=== PATIENT | female | born 1945 | race Caucasian/White ===

== ENCOUNTER 2021-08-15 12:17 | Inpatient (IN) | payer OTHER ==
[~2021-08-15] VITALS: Ht 172.7 cm; Wt 73.3 kg
--- NOTE | 2021-08-15 12:25 | NUR ---
TO ER BED 2, BIBRA 60 FROM BOARD AND CARE C/O SYNCOPAL EPISODE, R THIGH PAIN. AAOX3, BREATHING EVEN AND NON LABORED, AWAITING MD ORDERS
[2021-08-15] MEDS ORDERED: ATOR10TA PO (12:44)
[2021-08-15] MEDS ORDERED: ONDA4TAB5 PO (12:44)
[2021-08-15] MEDS ORDERED: DOCU-141 PO (12:44)
[2021-08-15] MEDS ORDERED: AMLO-212 PO (12:44)
[2021-08-15] MEDS ORDERED: FLUO40CA49 PO (12:44)
[2021-08-15] MEDS ORDERED: ACET-868 PO (12:44)
[2021-08-15] MEDS ORDERED: QUET25TA PO (12:44)
[2021-08-15] MEDS ORDERED: HYDR-4076 PO (12:44)
[2021-08-15] MEDS ORDERED: LISI10TA29 PO (12:44)
[2021-08-15] MEDS ORDERED: HALO0.5T PO (12:44)
[2021-08-15 12:52] LABS: BASOPHILS # (AUTO) 0.1 K/uL (0.0-0.2); BASOPHILS % (AUTO) 0.7 % (0.0-2.0); EOSINOPHILS % (AUTO) 2.1 % (0.0-6.0); HEMATOCRIT 34 % (33-45); HEMOGLOBIN 11.3 g/dL (11.5-14.8); LYMPHOCYTES # (AUTO) 0.9 K/uL (0.8-4.8); LYMPHOCYTES % (AUTO) 10.4 % (20.0-44.0); MEAN CORPUSCULAR HGB CONC 34 g/dl (31.0-36.0); MEAN CORPUSCULAR VOLUME 89 fL (82-100); MONOCYTES % (AUTO) 11.9 % (2.0-12.0); NEUTROPHILS # (AUTO) 6.1 K/uL (1.8-8.9); NEUTROPHILS % (AUTO) 74.9 % (43.0-81.0); PLATELET COUNT (AUTO) 234 K/uL (150-450); WHITE BLOOD COUNT (AUTO) 8.2 K/uL (4.3-11.0)
--- NOTE | 2021-08-15 13:03 | NUR ---
DR REILLY AT BEDSIDE
[2021-08-15 13:04] LABS: CALCIUM, SERUM 8.4 mg/dL (8.5-10.1); CARBON DIOXIDE 26 mmol/L (21-32); CHLORIDE 104 mmol/L (98-107); GLUCOSE 121 mg/dL (74-106); POTASSIUM 3.6 mmol/L (3.5-5.1); SODIUM SERUM 137 mmol/L (136-145); UREA NITROGEN, BLOOD 14 mg/dL (7-18)
[2021-08-15] MEDS ORDERED: IV LR 1000 ML 1,000 ML IV ONE (13:30)
--- NOTE | 2021-08-15 14:10 | NUR ---
COVID SWAB DONE AND SENT TO LAB
--- NOTE | 2021-08-15 15:17 | NUR ---
[facility] CALLED CHEMICAL ENGINEERING TECHNOLOGIST PAGED.
[2021-08-15] MEDS ORDERED: ACETAMINOPHEN 325 MG TABLET PO PRN (15:30)
[2021-08-15] MEDS ORDERED: HALOPERIDOL 0.5 MG PO PRN (15:30)
[2021-08-15] MEDS ORDERED: LABETALOL 20 MG/4 ML VIAL IV PRN (15:30)
[2021-08-15] MEDS ORDERED: IV NS 0.9% 1,000 ML IV SCH (15:30)
[2021-08-15] MEDS ORDERED: MORPHINE SULFATE INJ 2 MG/ML DISP.SYRIN IV PRN (15:30)
[2021-08-15] MEDS ORDERED: ONDANSETRON HCL/PF 4 MG/2 ML VIAL IVP PRN (15:30)
[2021-08-15] MEDS ORDERED: IV NS 0.9% 1,000 ML IV PRN (16:40)
[2021-08-15] MEDS ORDERED: ENOXAPARIN SODIUM 40 MG/0.4 ML DISP.SYRIN SQ ONE (16:45)
[2021-08-15] MEDS ORDERED: DOCUSATE SODIUM 100 MG CAPSULE PO ONE (16:45)
[2021-08-15] MEDS: ENOXAPARIN SODIUM 40 MG/0.4 ML DISP.SYRIN SQ SCH (16:50)
[2021-08-15] MEDS: DOCUSATE SODIUM 100 MG CAPSULE PO SCH (17:00)
--- NOTE | 2021-08-15 17:09 | NUR ---
REPORT GIVEN TO ABEL NATARAJAN FOR MARÍA
[2021-08-15] MEDS ORDERED: HALOPERIDOL 1 MG TABLET PO PRN (17:30)
--- NOTE | 2021-08-15 17:30 | NUR ---
TELE/PROPERTY LOSS INSURANCE CLAIM ADJUSTER NOTES RECEIVED PATIENT FROM THE ER VIA GURNEY. PATIENT IS ALERT AND ORIENTED X4, ABLE TO MAKE NEEDS KNOWN. STABLE ON ROOM AIR. AMBULATORY. SKIN INTACT WITH RED BUMP ON THE FOREHEAD AND BRUISE ON THE RIGHT LEG DUE TO FALL. NO DISCOMFORTS REPORTED AT THIS TIME. IV ACCESS ON LEFT HAND #20G IS INTACT AND PATENT WITH A RUNNING IV NS @75 ML/HR. TELEMONITOR ON WITH A SINUS 66. ORIENTED PATIENT IN THE UNIT. SAFETY MEASURES IN PLACED: BED LOCKED ON LOWEST POSITION, SIDE RAILS UPX2, CALL LIGHT WITHIN REACH. WILL CONTINUE TO MONITOR.
[2021-08-15] MEDS: IV NS 0.9% 1,000 ML IV SCH (18:36)
--- NOTE | 2021-08-15 19:45 | NUR ---
DIRECTOR OF RESERVATIONS OPENING NOTE PATIENT AWAKE IN BED, ALERT/ORIENTED X 2-3, PT ABLE TO MAKE NEEDS KNOWN. PT DENIES PAIN AT THIS TIME. PT STABLE ON RA, NO S/S OF DISTRESS OR SOB NOTED, BREATHING EVEN AND UNLABORED. PATIENT ON EXTERNAL PSYCHOLOGIST PERSONNEL READING SINUS RHYTHM, HR: 67. IV ACCESS ON LEFT HAND #20G INTACT AND INFUSING NS @ 75 ML/HR. PATIENT IS AMBULATORY TO BATHROOM. SAFETY MEASURES IN PLACE: CALL LIGHT WITHIN REACH, SIDE RAILS UP X 2, BED LOCKED IN LOWEST POSITION, TABLE WITHIN REACH. WILL CONTINUE TO MONITOR PATIENT
[2021-08-15 20:00] VITALS: BP 119/63
[2021-08-15] MEDS: ATORVASTATIN 10 MG TABLET PO SCH (21:11)
[2021-08-15] MEDS: QUETIAPINE FUMARATE 25 MG TABLET PO PRN (23:03)
[2021-08-16] VITALS (7 sets, daily range): BP systolic 106–146; BP diastolic 50–79
--- NOTE | 2021-08-16 06:55 | NUR ---
REAL ESTATE PHOTOGRAPHER CLOSING NOTE PATIENT AWAKE IN BED, ALERT/ORIENTED X 2-3, FORGETFUL AT TIMES, PT ABLE TO MAKE NEEDS KNOWN. PT DENIES PAIN AT THIS TIME. PT STABLE ON RA, NO S/S OF DISTRESS OR SOB NOTED, BREATHING EVEN AND UNLABORED. PATIENT ON EXTERNAL VENDOR QUALITY SUPERVISOR READING SINUS RHYTHM, HR: 65. IV ACCESS ON LEFT FOREARM #20G INTACT AND INFUSING NS @ 75 ML/HR. PATIENT IS AMBULATORY TO BATHROOM WITH SBA. MEDICATIONS GIVEN ORDERED, PT NEEDS MET THROUGHOUT SHIFT. SAFETY MEASURES IN PLACE: CALL LIGHT WITHIN REACH, SIDE RAILS UP X 2, BED LOCKED IN LOWEST POSITION, TABLE WITHIN REACH, BED ALARM ON. WILL ENDORSE TO DAY SHIFT NURSE FOR CONTINUITY OF CARE
[2021-08-16 07:07] LABS: BASOPHILS % (AUTO) 0.2 % (0.0-2.0); EOSINOPHILS % (AUTO) 1.4 % (0.0-6.0); HEMATOCRIT 34 % (33-45); HEMOGLOBIN 11.5 g/dL (11.5-14.8); LYMPHOCYTES # (AUTO) 0.8 K/uL (0.8-4.8); LYMPHOCYTES % (AUTO) 9.8 % (20.0-44.0); MEAN CORPUSCULAR HGB CONC 33 g/dl (31.0-36.0); MEAN CORPUSCULAR VOLUME 89 fL (82-100); MONOCYTES % (AUTO) 12.7 % (2.0-12.0); NEUTROPHILS # (AUTO) 5.9 K/uL (1.8-8.9); NEUTROPHILS % (AUTO) 75.9 % (43.0-81.0); PLATELET COUNT (AUTO) 231 K/uL (150-450); RED BLOOD CELL COUNT(AUTO) 3.87 MIL/uL (4.0-5.2); WHITE BLOOD COUNT (AUTO) 7.8 K/uL (4.3-11.0)
--- NOTE | 2021-08-16 07:45 | NUR ---
TAXICAB DRIVER OPENING NOTE Patient in bed, awake. A/O x 2-3, forgetful. On room air, breathing evenly and unlabored. No SOB or s/s of distress noted. IV access on LFA #20G infusing NS at 75 ml/hr. On tele monitoring showing SR, Hr on the 60's. Safety precautions in place: bed in low, locked position; siderails up x 2; call light within reach. Will continue to monitor.
[2021-08-16] MEDS: IV NS 0.9% 1,000 ML IV SCH ×2 (07:57→22:16)
[2021-08-16 08:33] LABS: ALBUMIN 2.8 g/dL (3.4-5.0); CALCIUM, SERUM 8.5 mg/dL (8.5-10.1); CREATININE 0.8 mg/dL (0.6-1.3); MAGNESIUM 2.1 mg/dL (1.8-2.4); PHOSPHORUS 3.4 mg/dL (2.5-4.9); TOTAL PROTEIN, SERUM 6.5 g/dL (6.4-8.2)
[2021-08-16] MEDS: LISINOPRIL (10MG) 10 MG TABLET PO SCH (08:54)
[2021-08-16] MEDS: DOCUSATE SODIUM 100 MG CAPSULE PO SCH ×2 (08:54→17:23)
[2021-08-16] MEDS: FLUOXETINE HCL 20 MG CAPSULE PO SCH (08:54)
[2021-08-16] MEDS ORDERED: Medication Not On Formulary EA (Fluoxetine Hcl 40 MG) PO SCH (09:00)
--- NOTE | 2021-08-16 10:09 | NUR ---
RN NOTE Patient's orthostatic BP as follows: supine 110/58; sitting 117/61; standing 106/58
--- NOTE | 2021-08-16 11:00 | NUR ---
RN NOTE Patient's IV access on LFA got infiltrated. IV access removed and new one inserted at RFA #22G, IV fluid resumed.
[2021-08-16] MEDS: ENOXAPARIN SODIUM 40 MG/0.4 ML DISP.SYRIN SQ SCH (16:15)
--- NOTE | 2021-08-16 18:17 | NUR ---
RN NOTE Patient's temp was 102.1, PRN Tylenol given.
--- NOTE | 2021-08-16 18:53 | NUR ---
DISTRIBUTION A CLASS LINEMAN CLOSING NOTE Patient in bed, awake. A/O x 2-3, forgetful. Stable on room air, breathing evenly and unlabored. No SOB or s/s of distress noted. IV access on RFA #22G infusing NS at 75 ml/hr. Patient kept removing tele leads, replaced leads 3x, still keeps taking it off. All needs attended to. Due meds given. Safety precautions maintained: bed in low, locked position; siderails up x 2; call light within reach. Will endorse to night shift manager nurse for MARÍA.
--- NOTE | 2021-08-16 20:00 | NUR ---
DIRECTOR RECREATION OPENING NOTE PATIENT AWAKE IN BED, ALERT/ORIENTED X 2-3, FORGETFUL AT TIMES. PT DENIES PAIN AT THIS TIME. PT STABLE ON RA, NO S/S OF DISTRESS OR SOB NOTED, BREATHING EVEN AND UNLABORED. PATIENT ON EXTERNAL RAIL SPECIALIST READING SINUS RHYTHM, HR: 67. IV ACCESS ON RIGHT FOREARM #22G INTACT AND INFUSING NS @ 75 ML/HR. PLACED TELE MONITOR BACK ON PATIENT, READING SINUS RHYTHM, HR: 72. SAFETY MEASURES IN PLACE: CALL LIGHT WITHIN REACH, SIDE RAILS UP X 2, BED LOCKED IN LOWEST POSITION, TABLE WITHIN REACH. WILL CONTINUE TO MONITOR PATIENT
[2021-08-16] MEDS: ATORVASTATIN 10 MG TABLET PO SCH (22:16)
[2021-08-16] MEDS: QUETIAPINE FUMARATE 25 MG TABLET PO PRN (22:20)
[2021-08-17] VITALS: BP 121/41
[2021-08-17 04:00] VITALS: BP 118/74
--- NOTE | 2021-08-17 06:39 | NUR ---
GOAT HERDER CLOSING NOTE PATIENT SLEEPING IN BED, ALERT/ORIENTED X 2, FORGETFUL AT TIMES, PT ABLE TO MAKE NEEDS KNOWN. PT STABLE ON RA, NO S/S OF DISTRESS OR SOB NOTED, BREATHING EVEN AND UNLABORED. PATIENT ON EXTERNAL SUPERVISOR PIPELINES READING SINUS RHYTHM, HR: 63. IV ACCESS ON RIGHT FOREARM #22G INTACT AND INFUSING NS @ 75 ML/HR. MEDICATIONS GIVEN ORDERED, PT NEEDS MET THROUGHOUT SHIFT. SAFETY MEASURES IN PLACE: CALL LIGHT WITHIN REACH, SIDE RAILS UP X 2, BED LOCKED IN LOWEST POSITION, TABLE WITHIN REACH, BED ALARM ON. WILL ENDORSE TO DAY SHIFT NURSE FOR CONTINUITY OF CARE
[2021-08-17 08:00] VITALS: BP 126/69
--- NOTE | 2021-08-17 08:20 | NUR ---
MERCHANDISE EXAMINER OPENING NOTE Patient in bed, awake. A/O x 2-3, forgetful. On room air, breathing evenly and unlabored. No SOB or s/s of distress noted. IV access on LFA #20G infusing NS at 75 ml/hr. On tele monitoring showing SR, HR on the 70's. Denies any pain or discomfort at this time. Safety precautions in place: bed in low, locked position; siderails up x 2; call light within reach. Will continue to monitor. Addendum: 08/17/21 at 1904 by CHIDI GERMAN RN CORRECTION: IV access on RFA #22
[2021-08-17] MEDS: FLUOXETINE HCL 20 MG CAPSULE PO SCH (09:10)
[2021-08-17] MEDS: LISINOPRIL (10MG) 10 MG TABLET PO SCH (09:10)
[2021-08-17] MEDS: DOCUSATE SODIUM 100 MG CAPSULE PO SCH ×2 (09:10→16:14)
[2021-08-17 09:25] LABS: ALBUMIN 2.8 g/dL (3.4-5.0); CALCIUM, SERUM 8.3 mg/dL (8.5-10.1); CREATININE 0.9 mg/dL (0.6-1.3); POTASSIUM 3.1 mmol/L (3.5-5.1); TOTAL PROTEIN, SERUM 6.5 g/dL (6.4-8.2)
[2021-08-17 09:48] LABS: BASOPHILS % (AUTO) 0.2 % (0.0-2.0); HEMATOCRIT 34 % (33-45); HEMOGLOBIN 11.5 g/dL (11.5-14.8); LYMPHOCYTES # (AUTO) 0.9 K/uL (0.8-4.8); LYMPHOCYTES % (AUTO) 9.6 % (20.0-44.0); MEAN CORPUSCULAR HGB CONC 34 g/dl (31.0-36.0); MEAN CORPUSCULAR VOLUME 89 fL (82-100); MONOCYTES # (AUTO) 0.7 K/uL (0.1-1.30); MONOCYTES % (AUTO) 7.5 % (2.0-12.0); NEUTROPHILS # (AUTO) 7.5 K/uL (1.8-8.9); NEUTROPHILS % (AUTO) 81.7 % (43.0-81.0); PLATELET COUNT (AUTO) 238 K/uL (150-450); RED BLOOD CELL COUNT(AUTO) 3.86 MIL/uL (4.0-5.2); WHITE BLOOD COUNT (AUTO) 9.2 K/uL (4.3-11.0)
[2021-08-17 11:18] LABS: BILIRUBIN,URINE SMALL (NEGATIVE); COLOR,URINE YELLOW (YELLOW); LEUKOCYTE ESTERASE ,URINE TRACE (NEGATIVE); NITRITE, URINE NEGATIVE (NEGATIVE); PH,URINE 5.5 (5.0-8.0); PROTEIN,URINE TRACE mg/dl (NEGATIVE); UGLUCOSE NEGATIVE (NEGATIVE)
[2021-08-17 11:50] LABS: BACTERIA,URINE None seen /HPF (None Seen); RBC,URINE 0-2 /HPF (0-2); SQUAMOUS EPITHELIAL CELL,UR Few /HPF (None Seen)
[2021-08-17 11:51] LABS: YEAST,URINE None Seen /HPF (None Seen)
[2021-08-17 12:00] VITALS: BP 127/63
[2021-08-17 12:43] LABS: THYROID STIMULATING HORMONE 0.424 uIU/mL (0.358-3.74)
[2021-08-17] MEDS ORDERED: POTASSIUM CHLORIDE 20 MEQ TAB.PRT.SR PO SCH (14:00)
[2021-08-17] MEDS: ENOXAPARIN SODIUM 40 MG/0.4 ML DISP.SYRIN SQ SCH (15:33)
--- NOTE | 2021-08-17 15:54 | NUR ---
RN NOTE Patient complained of mild lower back pain, all pain medications discontinued. Dr. Singletary notified and ordered Tyelnol 650 mg every 6 hrs PRN. Order carried out. Will continue to monitor patient.
[2021-08-17 16:00] VITALS: BP 131/69
[2021-08-17] MEDS ORDERED: ACETAMINOPHEN 325 MG TABLET PO PRN (16:00)
[2021-08-17] MEDS ORDERED: CEFTRIAXONE 1 G in IV D5W 50 ML IV SCH (17:00)
--- NOTE | 2021-08-17 17:00 | NUR ---
RN NOTE Patient's low back pain relieved.
--- NOTE | 2021-08-17 19:02 | NUR ---
QUALITY IMPROVEMENT CONSULTANT CLOSING NOTE Patient in bed, resting comfortably. A/O x 2-3, forgetful; able to make needs known. Stable on room air, breathing evenly and unlabored. No SOB or s/s of distress noted. IV access on LFA #22G SL, intact and patent. On tele monitoring showing SR, HR on the 70's. All needs attended to. Due meds given. Safety precautions maintained: bed in low, locked position; siderails up x 2; call light within reach. Will endorse to night shift manager nurse for MARÍA. Addendum: 08/17/21 at 1904 by CHIDI GERMAN RN CORRECTION: IV access on RFA #22G
--- NOTE | 2021-08-17 19:50 | NUR ---
POWERSAW SUPERVISOR OPENING NOTE PATIENT AWAKE IN BED, ALERT/ORIENTED X 2-3, FORGETFUL AT TIMES. PT DENIES PAIN AT THIS TIME. PT STABLE ON RA, NO S/S OF DISTRESS OR SOB NOTED, BREATHING EVEN AND UNLABORED. PATIENT ON EXTERNAL PLASTIC SURGERY NURSE READING SINUS RHYTHM, HR: 61. IV ACCESS ON RIGHT FOREARM #22G INTACT AND PATENT, SALINE LOCKED. SAFETY MEASURES IN PLACE: CALL LIGHT WITHIN REACH, SIDE RAILS UP X 2, BED LOCKED IN LOWEST POSITION, TABLE WITHIN REACH. WILL CONTINUE TO MONITOR PATIENT
[2021-08-17 20:00] VITALS: BP 136/75
[2021-08-17] MEDS: QUETIAPINE FUMARATE 25 MG TABLET PO PRN (23:04)
[2021-08-18] VITALS (7 sets, daily range): BP systolic 119–160; BP diastolic 56–77
[2021-08-18 06:25] LABS: BASOPHILS % (AUTO) 0.4 % (0.0-2.0); EOSINOPHILS % (AUTO) 3.7 % (0.0-6.0); HEMATOCRIT 34 % (33-45); HEMOGLOBIN 11.4 g/dL (11.5-14.8); LYMPHOCYTES # (AUTO) 0.9 K/uL (0.8-4.8); LYMPHOCYTES % (AUTO) 13.8 % (20.0-44.0); MEAN CORPUSCULAR HGB CONC 33 g/dl (31.0-36.0); MEAN CORPUSCULAR VOLUME 89 fL (82-100); NEUTROPHILS # (AUTO) 4.4 K/uL (1.8-8.9); NEUTROPHILS % (AUTO) 67.1 % (43.0-81.0); PLATELET COUNT (AUTO) 244 K/uL (150-450); RED BLOOD CELL COUNT(AUTO) 3.86 MIL/uL (4.0-5.2); WHITE BLOOD COUNT (AUTO) 6.5 K/uL (4.3-11.0)
--- NOTE | 2021-08-18 07:39 | NUR ---
TELEPHONE CLEANER CLOSING NOTE PATIENT AWAKE IN BED, ALERT/ORIENTED X 2-3, FORGETFUL AT TIMES, PT ABLE TO MAKE NEEDS KNOWN. PT STABLE ON RA, NO S/S OF DISTRESS OR SOB NOTED, BREATHING EVEN AND UNLABORED. PATIENT ON EXTERNAL LEAF TIER READING SINUS RHYTHM, HR: 65. IV ACCESS ON RIGHT FOREARM #22G INTACT AND SALINE LOCKED. MEDICATIONS GIVEN ORDERED, PT NEEDS MET THROUGHOUT SHIFT. SAFETY MEASURES IN PLACE: CALL LIGHT WITHIN REACH, SIDE RAILS UP X 2, BED LOCKED IN LOWEST POSITION, TABLE WITHIN REACH, BED ALARM ON. WILL ENDORSE TO DAY SHIFT NURSE FOR CONTINUITY OF CARE
[2021-08-18 07:41] LABS: ALBUMIN 2.7 g/dL (3.4-5.0); BILIRUBIN,TOTAL 0.5 mg/dL (0.2-1.0); CALCIUM, SERUM 8.5 mg/dL (8.5-10.1); CREATININE 0.8 mg/dL (0.6-1.3); MAGNESIUM 2.1 mg/dL (1.8-2.4); PHOSPHORUS 3.5 mg/dL (2.5-4.9); POTASSIUM 3.9 mmol/L (3.5-5.1); TOTAL PROTEIN, SERUM 6.5 g/dL (6.4-8.2)
--- NOTE | 2021-08-18 07:59 | NUR ---
RN OPENING NOTE RECEIVED PATIENT IN BED, AO X 2-3, IN NO ACUTE DISTRESS AT THIS TIME. SATURATION AT 96% ON ROOM AIR. SKIN IS WARM TO TOUCH, KEEP CLEAN/DRY, INTACT IV AND FLUSHING WELL. SAFETY MEASURES IMPLEMENTED. PATIENT BED ALARM IS ON. HEAD OF BED ELEVATED. BED IS LOCKED, IN LOWEST POSITION AND SIDE RAILS UP. CALL LIGHT WITHIN REACH OF THE PATIENT. WILL CONTINUE TO MONITOR AND REASSESS FOR ANY CHANGES.
[2021-08-18] MEDS ORDERED: POTASSIUM CHLORIDE 20 MEQ TAB.PRT.SR PO ONE (08:00)
[2021-08-18] MEDS ORDERED: NITR100C6 PO (08:52)
[2021-08-18] MEDS: DOCUSATE SODIUM 100 MG CAPSULE PO SCH (08:59)
[2021-08-18] MEDS: FLUOXETINE HCL 20 MG CAPSULE PO SCH (09:00)
[2021-08-18] MEDS: LISINOPRIL (10MG) 10 MG TABLET PO SCH (09:00)
[2021-08-18] MEDS: ENOXAPARIN SODIUM 40 MG/0.4 ML DISP.SYRIN SQ SCH (15:30)
--- NOTE | 2021-08-18 17:47 | NUR ---
PATIENT BACK TO BOARDING /CARE, GIVEN DISCHARGE INSTRUCTION TO THE PATIENT. RETURNED ALL HOME MEDS. PATIENT DENIES ALL DISTRESS, IN STABLE CONDITION. LEFT FACILITY ACCOMPANIED BY STAFF TO THE [facility]. WOUND PICTURES TAKEN.
== END 2021-08-18 17:00 | DRG 312 ==
LOC: ER 12:20 → TELE 16:27
PROVIDERS: ADMIT Internal Medicine; ATTEND Internal Medicine
DX: I95.2 Hypotension due to drugs (principal); N39.0 Urinary tract infection, site not specified; I50.32 Chronic diastolic (congestive) heart failure; I11.0 Hypertensive heart disease with heart failure; Z20.822 Contact with and (suspected) exposure to COVID-19; F32.9 Major depressive disorder, single episode, unspecified; Z79.899 Other long term (current) drug therapy; T50.995A Adverse effect of other drugs, medicaments and biological substances, initial encounter; Y92.9 Unspecified place or not applicable; Y92.049 Unspecified place in boarding-house as the place of occurrence of the external cause
CPT/HCPCS: 36415; 70450-TC; 71045-TC; 72125-TC; 76770-TC; 80048-TC; 80053-TC; 80061-TC; 81001; 82728-TC; 83540-TC; 83605-TC; 83735-TC; 84100-TC; 84439-TC; 84443-TC; 84484-TC; 85025-TC; 87040-TC; 87081-TC; 93307-TC; 97116-TC; 97530-TC; G0378; J0696; J1650; J3490; J7030; J7060; J7120